=== PATIENT | female | born 1950 | race Caucasian/White ===

== ENCOUNTER 2021-01-07 12:00 | Inpatient (IN) | payer OTHER ==
[~2021-01-07] VITALS: Ht 160 cm; Wt 89.2 kg
[2021-01-07 12:08] VITALS: BP 152/83
[2021-01-07 12:42] LABS: ABSOLUTE NEUTROPHILS 15.3 thou/uL (1.4-8.2); BASOPHILS 0.3 % (0.0-2.0); EOSINOPHILS 0.1 % (0.0-3.0); HEMATOCRIT 40.3 % (37.0-47.0); HEMOGLOBIN 13.6 gm/dL (12.0-15.0); LYMPHOCYTES 2.8 % (24.0-44.0); MCHC 33.8 g/dL (28.0-37.0); MCV 88.8 fL (80.0-100.0); MONOCYTES 2.8 % (1.0-8.0); PLATELET COUNT 325 thou/uL (150-400); RBC 4.54 mil/uL (4.20-5.00); RDW 13.5 % (10.5-14.5); WBC 16.3 thou/uL (4.0-11.0)
[2021-01-07] MEDS ORDERED: SIMVASTATIN80 MG PO (12:45)
[2021-01-07] MEDS ORDERED: ASA81BEC PO (12:46)
[2021-01-07 12:49] LABS: CALCIUM 8.9 mg/dL (8.5-10.1); POTASSIUM 3.5 mmol/L (3.5-5.1)
[2021-01-07 12:58] LABS: ALBUMIN 3.6 g/dL (3.4-5.0); TOTAL BILIRUBIN 0.6 mg/dL (0.2-1.0); TOTAL PROTEIN 7.7 g/dL (6.4-8.2)
[2021-01-07 15:41] LABS: URINE BILIRUBIN NEGATIVE (Negative); URINE BLOOD 1+ (Negative); URINE CLARITY CLEAR; URINE COLOR YELLOW; URINE GLUCOSE-RANDOM* NEGATIVE (Negative); URINE KETONES 1+ (Negative); URINE LEUKOCYTES-REFLEX 1+ (Negative); URINE NITRITE-REFLEX NEGATIVE (Negative); URINE PROTEIN (DIPSTICK) NEGATIVE (Negative); URINE SPECIFIC GRAVITY 1.015 (1.005-1.035); URINE UROBILINOGEN 0.2 E.U./dl (0.2-1.0)
[2021-01-07 15:51] LABS: BACTERIA-REFLEX 1-9 Few /HPF (None Seen); SQUAMOUS 0-3 Few /LPF (0-3); URINE RBC 1-2 Rare /HPF (NONE SEEN); URINE WBC-REFLEX 6-15 Few /HPF (0-5); WBC CLUMPS Occasional (None Seen)
[2021-01-07 21:29] VITALS: BP 129/51
[2021-01-07 22:00] VITALS: BP 152/67
[2021-01-07] MEDS ORDERED: VITAMIN D350 MCG PO (22:07)
[2021-01-08] VITALS (7 sets, daily range): BP systolic 127–151; BP diastolic 65–171
--- NOTE | 2021-01-08 00:19 | NUR ---
pt admitted to room 212 from ER, no c/o pain at this time, scds placed on pt and reminded her to call when she needs to get up, vss, education on scds and meds given will con't to monitor per ppoc.
[2021-01-08 03:31] LABS: BASOPHILS 0.5 % (0.0-2.0); EOSINOPHILS 0.8 % (0.0-3.0); HEMATOCRIT 38.6 % (37.0-47.0); HEMOGLOBIN 12.9 gm/dL (12.0-15.0); LYMPHOCYTES 9.8 % (24.0-44.0); MCH 29.7 pg (26.0-34.0); MCHC 33.5 g/dL (28.0-37.0); MCV 88.7 fL (80.0-100.0); MONOCYTES 4.8 % (1.0-8.0); PLATELET COUNT 310 thou/uL (150-400); POLYS 84.1 % (36.0-66.0); RBC 4.35 mil/uL (4.20-5.00); RDW 13.7 % (10.5-14.5); WBC 13.1 thou/uL (4.0-11.0)
[2021-01-08 09:14] LABS: CHOLESTEROL 150 mg/dL (<200); HDL CHOLESTEROL 51 mg/dL (>40); LDL CHOLESTEROL 85 mg/dL (<100); TC:HDL 2.9 Ratio (Not establshd); TRIGLYCERIDE 70 mg/dL (<150); VLDL 14 mg/dL (<40)
--- NOTE | 2021-01-08 13:27 | 2DMMODE ---
[facility] [place] [address] 2 D/M-MODE ECHOCARDIOGRAM Name: SUSHIL DOMINGO Room #: 212-P ADM IN M.R.#: [id number] Admission: 01/07/21 Attend Phys: Bill Cormier MD Discharge: Date of : 52 Report #: [id number] THIS REPORT FOR: cc: Gwendolyn Shepard MD, Michelle R. MD Santiago, Patrick MD [facility] ~ APPROVED REPORT Study performed: 01/08/2021 11:45:01 EXAM: Comprehensive 2D, Doppler, and color-flow Echocardiogram Patient Location: Echo lab Room #: 212 Status: routine BSA: 1.93 HR: 77 bpm BP: 151/70 mmHg Rhythm: NSR Other Information Study Quality: Good Indications Chest Pain 2D Dimensions RVDd: 34.41 mm IVSd: 10.87 (7-11mm) LVOT Diam: 20.10 (18-24mm) LVDd: 39.71 mm PWd: 10.59 (7-11mm) Ascending Ao: 31.01 (22-36mm) LVDs: 30.19 (25-40mm) Left Atrium: 28.91 (27-40mm) Aortic Root: 28.67 mm Volumes Left Atrial Volume (Systole) Single Plane 4CH: 24.23 mL Single Plane 2CH: 37.38 mL LA ESV Index: 17.00 mL/m2 Aortic Valve AoV Peak Jose.: 1.55 m/s AO Peak Gr.: 9.63 mmHg LVOT Max P.16 mmHg LVOT Max V: 1.02 m/s LALO Vmax: 2.09 cm2 [facility] [address] [address] 2 D/M-MODE ECHOCARDIOGRAM Name: SUSHIL DOMINGO Room #: 212-P [facility] IN ..#: [id number] Admission: 01/07/21 Attend Phys: Bill Cormier MD Discharge: Date of : 52 Report #: [id number] Mitral Valve E/A Ratio: 0.8 MV Decel. Time: 297.58 ms MV E Max Jose.: 0.62 m/s MV A Jose.: 0.81 m/s MV PHT: 86.30 ms IVRT: 100.35 ms Pulmonary Valve PV Peak Jose.: 1.23 m/s PV Peak Gr.: 6.07 mmHg Pulmonary Vein P Vein S: 0.48 m/s P Vein A: 0.32 m/s P Vein D: 0.32 m/s P Vein A Dur.: 96.9 msec P Vein S/D Ratio: 1.50 Tricuspid Valve TR Peak Jose.: 2.25 m/s RAP Estimate: 5.00 mmHg TR Peak Gr.: 20.25 mmHg PA Pressure: 25.00 mmHg Left Ventricle The left ventricle is normal size. There is normal LV segmental wall motion. There is normal left ventricular wall thickness. Left ventricular systolic function is normal. LVEF is 60%. Mild diastolic dysfunction is present (impaired relaxation pattern). Right Ventricle The right ventricle is normal size. The right ventricular systolic function is normal. Atria The left atrium size is normal. The right atrium size is normal. Aortic Valve The aortic valve is normal in structure. No aortic regurgitation is present. There is no aortic valvular stenosis. Mitral Valve The mitral valve is normal in structure. There is no mitral valve regurgitation noted. No evidence of mitral valve stenosis. Tricuspid Valve The tricuspid valve is normal in structure. Trace tricuspid [facility] [address] [place] [address] 2 D/M-MODE ECHOCARDIOGRAM Name: SUSHIL DOMINGO Room #: 212-P [facility] IN .R.#: [id number] Admission: 01/07/21 Attend Phys: Bill Cormier MD Discharge: Date of : 52 Report #: [id number] regurgitation. Estimated PAP is 25mmHg. Pulmonic Valve The pulmonary valve is normal in structure. There is no pulmonic valvular regurgitation. Great Vessels The aortic root is normal in size. The ascending aorta is normal in size. IVC is normal in size and collapses >50% with inspiration. Pericardium There is no pericardial effusion. <Conclusion> Normal left ventricular size/wall thickness Ejection fraction 55-60% Grade 1 diastolic dysfunction Normal right ventricular size/function Abnormal atrial size Color-flow Doppler study was performed of the aortic/mitral/tricuspid/pulmonary valve Normal aortic/mitral valve structure and function Mild tricuspid valve insufficiency Pulmonary systolic pressure estimated at 25 mmHg Normal aortic root size No pericardial effusion <ELECTRONICALLY SIGNED> By: Mars Miller MD, FACC 01/08/211326 26 26 Mars Miller MD, FACC /INF
--- NOTE | 2021-01-08 16:21 | NUR ---
ASSUMED CARE SHIFT CHANGE.VSS DENIES CP. STRESS TEST THIS SHIFT PART 1, PART 2 TOMORROW. NOON ASSESSMENT NOT DOCUMENTED DUE TO PT BEING OFF THE UNIT. CONTINUING POC. DENIES NEEDS CURRENTLY. WILL PASS REPORT TO ARMANDO RN.
[2021-01-09 04:25] VITALS: BP 140/64
[2021-01-09 07:20] VITALS: BP 136/61
[2021-01-09] MEDS ORDERED: LEVOFLOXACIN500 MG PO (09:59)
[2021-01-09 11:00] VITALS: BP 128/65
[2021-01-09 11:34] VITALS: BP 128/65
--- NOTE | 2021-01-09 13:11 | NUR ---
ASSESSMENT CHARTED - MEDS PER [facility]ARY - LOULOU DIET AND FLUIDS. NO CO'S OF PAIN OR NAUSEA. UP AD MARGARET IN ROOM - PT HOME AFTER LUNCH - INSTRUCTION RE HOME MEDS/ CARE AND FOLLOW UP GIVEN TO PATIENT. STATED UNDERSTANDING OF INSTRUCTION GIVEN. HOME VIA PVT VEHICLE ACCOMPANIED BY DAUGHTER. NO CO'S AT TIME OF D/C.
== END 2021-01-09 13:00 | disposition home or self-care (01) | DRG 205 ==
LOC: ER 12:00 → 2N 15:58 → EROBS 15:58 → 2N 21:34
PROVIDERS: Emergency Medicine; ADMIT Internal Medicine; ATTEND Internal Medicine
DX: M94.0 Chondrocostal junction syndrome [Tietze] (principal); R65.11 Systemic inflammatory response syndrome (SIRS) of non-infectious origin with acute organ dysfunction; N39.0 Urinary tract infection, site not specified; R07.89 Other chest pain; D72.829 Elevated white blood cell count, unspecified; M79.10 Myalgia, unspecified site; E66.01 Morbid (severe) obesity due to excess calories; E78.5 Hyperlipidemia, unspecified; Z20.822 Contact with and (suspected) exposure to COVID-19; Z79.82 Long term (current) use of aspirin; Z79.899 Other long term (current) drug therapy; Z88.0 Allergy status to penicillin; Z72.89 Other problems related to lifestyle; Z68.34 Body mass index [BMI] 34.0-34.9, adult
CPT/HCPCS: 10081